=== PATIENT | female | born 1990 | race Caucasian/White ===

== ENCOUNTER 2016-08-11 07:30 | Emergency (ER) | payer OTHER ==
--- NOTE | 2016-08-11 07:32 | EDPHY ---
H & P Time Seen by Provider: 08/11/16 07:32 HPI/ROS: Chief Complaint: Stepped on nail HPI: The patient presents to the ED with a puncture wound to her left foot. She stepped on a nail which went through her tennis shoe and sock. The patient complains of mild pain to the foot but otherwise denies additional complaints. She denies any numbness or weakness in the extremity. She has been ambulatory with an antalgic gait. The injury occurred one hour prior to arrivial. She denies additional complaints or other concerns. The patient did visualize a fully intact metal nail after she removed her foot following the puncture. Last tetnus is unknown. REVIEW OF SYSTEMS: Neuro: no headache, numbness, weakness Musculoskeletal: as above Skin: Puncture wound as above Source: Patient Exam Limitations: No limitations - Medical/Surgical History Hx Asthma: No Hx Chronic Respiratory Disease: No Hx Diabetes: No Hx Cardiac Disease: No Hx Renal Disease: No Hx Cirrhosis: No Hx Alcoholism: No Hx HIV/AIDS: No Hx Splenectomy or Spleen Trauma: No Other PMH: Deppression, anxiety - Social History Smoking Status: Light smoker - Physical Exam Exam: General Appearance: Alert, no distress, slightly disheveled Skin: Puncture wound noted to dorsum of left foot, no hematoma Extremities: Puncture wound noted to the dorsum of the left foot, intact range of motion noted with flexion extension of all toes Neurological: Neurologically intact throughout the left foot Constitutional: Initial Vital Signs Temperature (C) 36.4 C 08/11/16 07:31 Heart Rate 82 08/11/16 07:31 Respiratory Rate 16 08/11/16 07:31 Blood Pressure 107/58 L 08/11/16 07:31 O2 Sat (%) 97 08/11/16 07:31 O2 Delivery Mode Room Air Allergies/Adverse Reactions: No Known Allergies Allergy (Verified 08/11/16 07:31) Home Medications: Medication Instructions Recorded levOFLOXACIN [Levaquin] 500 mg PO DAILY #10 tab 08/11/16 Medical Decision Making ED Course/Re-evaluation: The patient presents to the ED with a plantar puncture wound. She had the wound cleaned and irrigated with an angio catheter. The patient did received tetanus vaccination. She will be placed on Levaquin which has been filled through our medication assistance program. The patient has been informed that these injuries are high risk for infection and she needs to return to the ED immediately for any increasing pain, redness, fever or other concerns. Differential Diagnosis: Differential diagnosis considered includes puncture wound, foreign body, laceration, neurovascular injury - Data Points Medications Given: Discontinued Medications Diphtheria/Tetanus/Acell Pertussis (Boostrix) 0.5 ml IM .ONCE ONE Stop: 08/11/16 07:41 Last Admin: 08/11/16 07:49 Dose: 0.5 ml Departure - Departure Disposition: Home, Routine, Self-Care Clinical Impression: Puncture wound of plantar aspect of foot Qualifiers: Encounter type: initial encounter Laterality: left Qualified Code(s): S91.332A - Puncture wound without foreign body, left foot, initial encounter Condition: Good Instructions: Puncture Wound (ED) Additional Instructions: 1. It is imperative you take antibiotics as prescribed for the next 10 days. 2. The wound you sustained is at high risk for infection. Please return to the ED immediately for markedly increasing pain, redness, fever, swelling, streaking up the leg or other concerns. 3. Please schedule a follow-up appointment with [facility] to establish primary care. You should have a wound check performed at [facility] or in the emergency department in the next week. 4. Tylenol or ibuprofen as needed for pain. Referrals: [facility],. [Clinic] - As per Instructions Prescriptions: levOFLOXACIN [Levaquin] 500 mg PO DAILY #10 tab
[2016-08-11 07:35] VITALS: BP 107/58; PULSE 82; RESP 16; TEMP 97.5; O2SAT 97
[2016-08-11] MEDS ORDERED: TDAP ADULT 0.5 ML INJ (BOOSTRIX) IM ONE (07:40)
== END 2016-08-11 08:20 | disposition home or self-care (01) ==
DX: S91.332A Puncture wound without foreign body, left foot, initial encounter (principal); F17.200 Nicotine dependence, unspecified, uncomplicated; Z23 Encounter for immunization; W45.0XXA Nail entering through skin, initial encounter

== ENCOUNTER 2017-12-16 17:22 | Emergency (ER) | payer MEDICAID, OTHER ==
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
[2017-12-16 18:34] LABS: PLATELET COUNT 300 10^3/uL (150-400)
[2017-12-16] MEDS ORDERED: AZITHROMYCIN 250 MG TAB PO ONE (19:26)
[2017-12-16 21:25] VITALS: BP 132/74
== END 2017-12-16 21:26 | disposition home or self-care (01) ==
LOC: EDUNIT#
DX: Z04.41 Encounter for examination and observation following alleged adult rape (principal); F12.150 Cannabis abuse with psychotic disorder with delusions
CPT/HCPCS: 80305; G0480; J0696